=== PATIENT | female | born 1950 | race Hispanic/Latino ===

== ENCOUNTER 2021-11-03 14:58 | Emergency (ER) | payer OTHER ==
[2021-11-03] MEDS ORDERED: Ondansetron PF 4 MG/2 ML Vial ONE (15:36)
[2021-11-03] MEDS ORDERED: methylPREDNISolone Sod Succ/PF 125 MG/2 ML VIAL ONE (15:36)
[2021-11-03] MEDS ORDERED: Famotidine/PF 20 mg/2ml Vial ONE (15:36)
== END 2021-11-03 17:30 | disposition home or self-care (01) ==
LOC: CSHERS 14:58
DX: T78.02XA Anaphylactic reaction due to shellfish (crustaceans), initial encounter (principal)
CPT/HCPCS: 96374; 96375; J2405; J2930; S0028